=== PATIENT | female | born 1935 | race Caucasian/White ===

== ENCOUNTER → 2017-08-24 | Emergency (ER) | payer OTHER ==
[~2017-08-24] MED LIST: SODIUM BICARBONATE 8.4% - 150 ML ONE
--- NOTE | 2017-08-24 19:56 | PDOC ---
History of Present Illness - General History Source: EMS <Giorgi Cuellar - Last Filed: 08/24/17 21:28> - History of Present Illness Initial Comments: 08/24/17 20:59 Patient is a 81 year old woman, From [facility], with a significant past medical history of Diabetes, CAD, CHF, Osteoarthritis, Dementia, hyperthyroidism , Hx recurrent reflux, Hyperlipidemia ,and Pressure ulcer of the sacral region who was brought in by EMS to the ED s/p cardiac arrest that occured 30 minutes prior to arrival. As per EMS patient was coding for 35 minutes total, including time worked on her by paramedics. EMS reports patient was experiencing intermittent episodes of vomiting since this morning but did not specify the number of episodes. As per EMS, patient began complaining of SOB while at CT before coding. EMS reports giving patient 4 Bicarbs, 5 Epis, and administered Shock to patient once. He reports patient became Bradycardic at one point and was given a finger stick test which was said to be high. EMS reports patient was intubated at 7:20pm and went into V-Fib once but does not specify the time. Patient T.O.D was called at 7:48pm. Allergies: None Social history: From [facility]. No smoking. N alcohol. No illicit drugs. Surgical history: None PMD: None <Kody Snow - Last Filed: 08/24/17 21:32> - General Stated Complaint: CARDIAC ARREST Time Seen by Provider: 08/24/17 19:56 Past History - Past Medical History Anemia: Yes Asthma: No Cancer: No Cardiac Disorders: Yes CVA: No COPD: No CHF: No Dementia: Yes Diabetes: Yes GI Disorders: Yes Disorders: Yes HTN: Yes Hypercholesterolemia: Yes Liver Disease: No Seizures: No Thyroid Disease: Yes - Surgical History Abdominal Surgery: Yes Appendectomy: No Cardiac Surgery: Yes (CABG ,CARDIAC STENT) Cholecystectomy: No Lung Surgery: No Neurologic Surgery: No Orthopedic Surgery: No - Suicide/Smoking/Psychosocial Hx Smoking History: Never smoked Have you smoked in the past 12 months: No Hx Alcohol Use: No Drug/Substance Use Hx: No <Giorgi Cuellar - Last Filed: 08/24/17 21:28> <Kody Snow - Last Filed: 08/24/17 21:32> - Past Medical History Allergies/Adverse Reactions: Allergies Allergy/AdvReac Type Severity Reaction Status Date / Time No Known Drug Allergies Allergy Verified 08/24/17 20:11 Home Medications: Ambulatory Orders Furosemide [Lasix -] 40 mg PO DAILY 01/25/14 Gabapentin [Neurontin] 300 mg PO TID 01/25/14 Insuln Asp Prt/Insulin Aspart [Novolog Mix 70-30 Cartridge] 30 unit SQ DAILY 05/03 Levothyroxine [Synthroid -] 112 mcg PO DAILY 01/25/14 Metoprolol Tartrate [Lopressor -] 25 mg PO BID 01/25/14 Olmesartan Medoxomil [Benicar -] 20 mg PO DAILY 01/25/14 Omeprazole [Prilosec (RX)] 20 mg PO DAILY 01/25/14 Rosuvastatin Calcium [Crestor] 20 mg PO DAILY 01/25/14 Senna 2 tab MC DAILY 01/25/14 Sitagliptin Phosphate [Januvia] 50 mg PO DAILY 01/25/14 Ibuprofen [Motrin -] 600 mg PO TID #0 02/08/14 Review of Systems - Review of Systems Able to Perform ROS?: No All Other Systems: Reviewed and Negative <Kody Snow - Last Filed: 08/24/17 21:32> *Physical Exam - Vital Signs Last Vital Signs Temp Pulse Resp BP Pulse Ox 0/0 08/24/17 19:52 - Physical Exam Comments: 08/24/17 20:59 GENERAL: No spontaneous vital signs at presentation. HEENT: +pupils fixed and dilated +AT/NC CARDIOVASCULAR: +No spontaneous heart sounds. PULMONARY: +Patient intubated bag by BBM. +No spontaneous breath sounds. EXTREMITIES: +IO in right tibia. NEUROLOGICAL: +No motor activity. <Kody Snow - Last Filed: 08/24/17 21:32> Medical Decision Making - Medical Decision Making 08/24/17 20:28 Spoke to ME Theatrical Performer Julien. Case no accepted. #[id number][address] Dr. Cuellar: The scribe's documentation has been prepared under my direction and personally reviewed by me in its entirery. I confirm that the note above accurately reflects all work, treatment, procedures, and medical decision making performed by me. Pt regained to spontaneous vitals while in the department. Applied Sono[employer] to observe cardiac motility. None was seen. Pt pronounced by me at 7:48pm. Daughter present and informed of mother expiration. 08/24/17 21:28 Spoke to Angelika Newsome for Dr. Barbour. Dr. Barbour will do paperwork <Giorgi Cuellar - Last Filed: 08/24/17 21:28> - Medical Decision Making 08/24/17 21:[address] Quiroz @8:48pm. Dr not listed at given number from [facility]. Called Dr. Carney @8:54pm. Awaiting call back <Kody Snow - Last Filed: 08/24/17 21:32> *DC/Admit/Observation/Transfer <Giorgi Cuellar - Last Filed: 08/24/17 21:28> - Attestations Scribe Attestion: 08/24/17 21:00 Documentation prepared by Kody Snow, acting as internist medical doctor md for Giorgi Cuellar MD/DO. <Kody Snow - Last Filed: 08/24/17 21:32> Diagnosis at time of Disposition: Cardiac arrest - Discharge Dispostion Disposition: Condition at time of disposition: - Referrals Referrals: Richie Muse MD [Primary Care Provider] -
[2017-08-24 20:36] VITALS: BP 0/0; BMI 59.5
== END | disposition expired ==
LOC: JER 19:52
DX: I46.9 Cardiac arrest, cause unspecified (principal); E11.9 Type 2 diabetes mellitus without complications; E05.90 Thyrotoxicosis, unspecified without thyrotoxic crisis or storm; E78.5 Hyperlipidemia, unspecified; I50.9 Heart failure, unspecified; I25.10 Atherosclerotic heart disease of native coronary artery without angina pectoris; Z79.4 Long term (current) use of insulin
CPT/HCPCS: 99283-25